=== PATIENT | female | born 1955 | race Caucasian/White ===

== ENCOUNTER 2023-12-11 10:00 | Outpatient (RCR) | payer MEDICARE, SELFPAY | END 2023-12-11 19:00 | disposition home or self-care (01) | LOC: PT 10:00 | DX: M25.561 Pain in right knee (principal); M76.62 Achilles tendinitis, left leg; G89.29 Other chronic pain | CPT/HCPCS: 97110; 97113; 97162; 97530 ==

== ENCOUNTER 2024-05-05 09:30 | Outpatient (RCR) | payer MEDICARE, SELFPAY ==
--- NOTE | 2024-02-13 09:43 | HP.PTEVAL_ITS ---
Patient's Visit Information Visit Information Visit Information: SHILOH LENZ is a 68 year old F referred to Physical Therapy by Dr. Marko Munoz MD with a diagnosis of L achilles tendinitis, L plantar fascitis. Date of Evaluation: 02/11/24 Physical Therapist: Alexi Anders DPT Visit Plan Frequency: 2x /Week Duration: 6 Weeks Plan: 1) US to medial plantar fascia. IASTIM to same region 2) calf stretching 3) foot intrinsic strengthening, toe curls, post tib strengthening. 4) CKC exercises progressing to achilles eccentrics to assist with tissue remodling. Subjective Subjective: Pt. is here today for her initial evaluation with diagnosis of L achilles tendinitis and L plantar fasciatis. Pt. reports having increased pain for a while now. Pt. is currently in a boot, but is okay to start weaning out of it. She did have an injection which was helpful. Pt. did have an MRI confirming no tearing. Pt. has increased pain with standing, walking, and exercises. She reports most of her pain is now located at medial plantar fascia origin. She still has some achilles pain as well. No N/T noted. Pt. has not been stretching or exercising much due to letting it rest. Pt. is retired. She is hopeful to reduce symptoms in order to get back to all recreational and household activities without limitations. Pain L achilles: Pain Intensity (Out of 10): 1 Pain Intensity Range: 0 and 4 L plantar fascia: Pain Intensity (Out of 10): 3 Pain Intensity Range: 2 and 9 Objective Objective: POSTURE: Pt. has decent posture in stance. No major over pronation. Pt. has some L toeing out in stance. Otherwise normal ARCELIA. PALPATION: Pt. has some tenderness at distal achilles, more so at medial plantar fascia origin. No pain in G/S complex NEURO: normal throughout. ROM: Pt. has slight calf tightness, but reports more of a stretch not pain. MMT: Pt. has 4/5 foot intrinsic strength, 5-/5 PF, and 5-/5 post tib. GAIT: Pt. has increased L toeing out, slight increase in pronation during stance phase. Pt. does have slight decreased step length on R side, but not severe. Slight antalgic pattern during L stance phase. STAIRS: normal ascending, early heel off with descending. Balance/Special Test Scores Lower Extremity Functional Score: 33 Goals Goal 1:: LTG: pt. to be I with HEP. Goal Time Frame: 4-6 Weeks Goal 2:: Pt. to have normal gait pattern without increase in L foot/achilles pain. Goal Time Frame: 4-6 Weeks Goal 3:: LTG: Pt. to have symmetrical strength between BLEs. Goal Time Frame: 4-6 Weeks Goal 4:: LTG: Pt. to be able to negotiate stairs without increase in L achilles/plantar fascia pain. Goal Time Frame: 4-6 Weeks Rehabilitation Potential Physical Therapy Diagnosis: Pt. has signs and symptoms consistent with L achilles tendinitis, L plantar fascitis. pt. has some calf tigtness, plantar fascia tightness and foot intrinsic strength and calf strength. Pt. would benefit from PT to address the above limitations progressing back to all previous levels of function. Rehabilitation Potential: Excellent Anticipated Interventions Patient/Client Instruction: Educate patient on: Condition, Plan of Care, Risk Factors and Benefits of Fitness Program For the Purpose of:: To improve health and function, To foster healthy habits, To improve decision making, To facilitate caregiver knowledge, To improve self management, To prevent re-injury and To improve ability to perform tasks related to life management Therapeutic Exercise to Include: Strength training, Power training, Flexibilty training, Passive ROM and Active ROM For the Purpose of:: To decrease pain, To increase ROM, To improve nutrient delivery to tissue, To increase oxygenation perfusion, To improve muscle performance and motor function, To improve ability to perform ADL's, To increase tolerance to activity/condition/position, To improve performance and in dependence with ADL's and To decrease soft tissue restriction Manual Therapy Techniques to Include: Soft tissue mobilization Comment: IASTIM For the Purpose of:: To decrease pain, To increase ROM, To improve nutrient delivery to tissue, To decrease soft tissue restriction and To increase flexibility/ROM Ultrasound (thermal/non thermal): Yes For the Purpose of:: To decrease pain, To increase ROM, To improve nutrient delivery to tissue and To increase oxygenation perfusion Text: Thank you for the opportunity to evaluate your patient. For Medicare and Medicare HMO plans, please review the plan of care and approve it. It will need to be FAXED BACK to us at [phone] for Medicare purposes. For Medicare only, by signing this I certify the plan of care. Please let me know if there are questions or concerns regarding this plan of care. Physician Signature: Date:
--- NOTE | 2024-03-11 14:45 | HP.PTREVAL ---
Re-Evaluation Intro: Dr. Marko Munoz MD, It has been my pleasure to treat SHILOH LENZ over the last 9 visits for L achilles tendinitis, L plantar fascitis. Please see the progress note below for an update on the physical therapy plan of care! Subjective Subjective: Pt. reports that her achilles is doing better, but is still having medial plantar fascia pain. Pt. reports being 40%. Pt. is pleased thus far. Objective Objective/Function: Pt. has much improved ROM of her achilles. Pt. is not having much pain in her achilles, but is still having issues with her medial plantar fascia. She has increased tenderness at medial insertion. MMT: Pt. has decent strength throughout her ankle. She does how ever have some weakness at post tib and her foot intrinsic muscles. GAIT: Pt. has increased L toeing out with increased pronation on her L side during stance phase. I talked to her about strengthening of her post tib and foot intrinsics. I showed her some post tib strengthening, and intrinsic strengthening as well. We briefly talked about some over the counter orthotics to trial. Pt. to look into this. Plan Plan Plan: Extending POC x2 per week for 4 weeks. Focus on foot intrinsic strengthening ie banded toe curls etc. Add in post tib strengthening both OKC and CKC. May use manual and IASTIM to work on decreasing acute symptoms as well. Balance/Gait/Functional tests Balance/Special Test Scores Lower Extremity Functional Score: 49 Goals Goals Goal 1:: LTG: pt. to be I with HEP. Goal Time Frame: 4-6 Weeks Goal Progress: Progressing Goal 2:: Pt. to have normal gait pattern without increase in L foot/achilles pain. Goal Time Frame: 4-6 Weeks Goal Progress: Progressing Goal 3:: LTG: Pt. to have symmetrical strength between BLEs. Goal Time Frame: 4-6 Weeks Goal Progress: Progressing Goal 4:: LTG: Pt. to be able to negotiate stairs without increase in L achilles/plantar fascia pain. Goal Time Frame: 4-6 Weeks Goal 5:: LTG: Pt. to maintain SLS on LLE with out increased pronation for 30sec. Goal Time Frame: 6-8 Weeks Anticipated Interventions Anticipated Interventions Patient/Client Instruction: Educate patient on: Condition, Plan of Care, Risk Factors and Benefits of Fitness Program For the Purpose of:: To improve health and function, To foster healthy habits, To improve decision making, To facilitate caregiver knowledge, To improve self management, To prevent re-injury and To improve ability to perform tasks related to life management Therapeutic Exercise to Include: Strength training, Power training, Flexibilty training, Passive ROM and Active ROM For the Purpose of:: To decrease pain, To increase ROM, To improve nutrient delivery to tissue, To increase oxygenation perfusion, To improve muscle performance and motor function, To improve ability to perform ADL's, To increase tolerance to activity/condition/position, To improve performance and independence with ADL's and To decrease soft tissue restriction Manual Therapy Techniques to Include: Soft tissue mobilization Comment: IASTIM For the Purpose of:: To decrease pain, To increase ROM, To improve nutrient delivery to tissue, To decrease soft tissue restriction and To increase flexibility/ROM Ultrasound (thermal/non thermal): Yes For the Purpose of:: To decrease pain, To increase ROM, To improve nutrient delivery to tissue and To increase oxygenation perfusion Re-Evaluation Ending Re-evaluation ending: Please do not hesitate to contact me at [phone] by phone or if you have questions or concerns regarding this new plan of care! Sincerely, Alexi Anders DPT
--- NOTE | 2024-04-15 11:57 | HP.PTREVAL_ITS ---
Re-Evaluation Intro: Dr. Marko Munoz MD, It has been my pleasure to treat SHILOH LENZ over the last 15 visits for L achilles tendinitis, L plantar fascitis. Please see the progress note below for an update on the physical therapy plan of care! Subjective Subjective: Pt. reports overall doing better. She went to aquatic exercise class and was able to tolerate well. Objective Objective/Function: ROM: L ankle DF 8deg active, 14deg passive- increased achilles tenderness. MMT: pt. has good strength throughout L ankle, symmetrical to R side. BUt does have marked issues with eccentric lowering and SL heel raises. GAIT: Pt. continues to have increased R pronation in R stance. R hip ER positioning with gait. STAIRS: Slight increased in achilles tendon pain with lowering in stance phase. SL balance: pt. continues to have some slight imbalance in L SLS. At this point in time I would suggest that she continue to work on WBing strengthening, balance and stability of R ankle in order to reduce stress to ankle with daily activities. She reports starting to do some water aerobics and chair yoga. I suggested that she go back to yoga, but modify as needed. I want her to start to resume her activities, but as tolerated, ie reducing distance, and loading. Goals adjusted today. Pt. met her strength goal, but does have difficulty with eccentric and SL heel raises, added this to goals. She is still ahving some issues with stair negotiation, most likely due to calf tightness, continue to work on stretching here as well. Plan Plan Plan: I am recerting her for x2 week for 4 more week. Focus on SLS balance, progressive calf strengthening, achilles remodeling. Balance/Gait/Functional tests Balance/Special Test Scores Lower Extremity Functional Score: 58 Goals Goals Goal 1:: LTG: pt. to be I with HEP. Goal Time Frame: 4-6 Weeks Goal Progress: Progressing Goal 2:: Pt. to have normal gait pattern without increase in L foot/achilles pain. Goal Time Frame: 4-6 Weeks Goal Progress: Progressing Goal 3:: NEW GOAL: Pt. to complete SL heel raises x10 without issues of L ankle/foot pain. Goal Time Frame: 4-6 Weeks Goal Progress: Progressing Goal 4:: LTG: Pt. to be able to negotiate stairs without increase in L achilles/plantar fascia pain. Goal Time Frame: 4-6 Weeks Goal Progress: Progressing Goal 5:: LTG: Pt. to maintain SLS on LLE with out increased pronation for 30sec. Goal Time Frame: 6-8 Weeks Goal Progress: Progressing Goal 6:: LTG: pt. to resume recreational walking and yoga classes without issues. Goal Time Frame: 6-8 Weeks Goal Progress: Progressing Anticipated Interventions Anticipated Interventions Patient/Client Instruction: Educate patient on: Condition, Plan of Care, Risk Factors and Benefits of Fitness Program For the Purpose of:: To improve health and function, To foster healthy habits, To improve decision making, To facilitate caregiver knowledge, To improve self management, To prevent re-injury and To improve ability to perform tasks related to life management Therapeutic Exercise to Include: Strength training, Power training, Flexibilty training, Passive ROM and Active ROM For the Purpose of:: To decrease pain, To increase ROM, To improve nutrient delivery to tissue, To increase oxygenation perfusion, To improve muscle performance and motor function, To improve ability to perform ADL's, To increase tolerance to activity/condition/position, To improve performance and independenc e with ADL's and To decrease soft tissue restriction Manual Therapy Techniques to Include: Soft tissue mobilization Comment: IASTIM For the Purpose of:: To decrease pain, To increase ROM, To improve nutrient delivery to tissue, To decrease soft tissue restriction and To increase flexibility/ROM Ultrasound (thermal/non thermal): Yes For the Purpose of:: To decrease pain, To increase ROM, To improve nutrient delivery to tissue and To increase oxygenation perfusion Re-Evaluation Ending Re-evaluation ending: Please do not hesitate to contact me at [phone] by phone or if you have questions or concerns regarding this new plan of care! Sincerely, Alexi Anders DPT
--- NOTE | 2024-05-05 10:09 | HP.PTDCSUM ---
Discharge Summary D/C summary: It has been my pleasure to treat SHILOH LENZ referred by Dr. Marko Munoz MD, with the diagnosis of L achilles tendinitis, L plantar fascitis for a total of 19 visit(s). Discharge Date: 05/05/24 Please see the following information for a summary of their discharge status. Subjective Subjective: Pt. reports reports still having high levels of pain after doing activities. She reports not being able to walk last night. Pt. reports high levels of stiffness at home. Pt. reports doing some exercises x1 daily, stretching daily as well. Pain L achilles: Pain Intensity (Out of 10): 4 L plantar fascia: Pain Intensity (Out of 10): 4 Overall Improvement % Improvement: 80 Objective Objective/Function: Pt. is overall not changing much. I talked with her and we decided that she is to continue with her eccentrics and stretch frequently. At this point in time she is to follow up with physician while doing exercises to determine best course of action. I am doing to DC her back to physician at this point in time. Goals Goal 1:: LTG: pt. to be I with HEP. Goal Progress: Goal Met Goal 2:: Pt. to have normal gait pattern without increase in L foot/achilles pain. Goal Progress: Goal Met Goal 3:: NEW GOAL: Pt. to complete SL heel raises x10 without issues of L ankle/foot pain. Goal Progress: Goal Met Goal 4:: LTG: Pt. to be able to negotiate stairs without increase in L achilles/plantar fascia pain. Goal Progress: Progressing Goal 5:: LTG: Pt. to maintain SLS on LLE with out increased pronation for 30sec. Goal Progress: Progressing Goal 6:: LTG: pt. to resume recreational walking and yoga classes without issues. Goal Progress: Progressing Plan Plan: DC back to physician D/C Information d/c sentence: If there are questions or concerns regarding this patient's physical therapy, please feel free to call me at [phone]. Thank you for the referral of this patient. Sincerely, Alexi Hudson Sipos, DPT Balance/Gait/Functional tests Balance/Special Test Scores Lower Extremity Functional Score: 58 Improvement % Improvement: 80
== END 2024-05-05 19:00 | disposition home or self-care (01) ==
LOC: PT 09:30
PROVIDERS: Referring Provider Orthopaedic Surgery; Visit Provider Orthopaedic Surgery
DX: M76.62 Achilles tendinitis, left leg (principal); M79.672 Pain in left foot; G89.29 Other chronic pain
CPT/HCPCS: 97035; 97110; 97140; 97161; 97530

== ENCOUNTER 2025-03-30 09:00 | Outpatient (RCR) | payer MEDICARE, SELFPAY ==
--- NOTE | 2024-09-22 14:07 | HP.PTEVAL ---
Patient's Visit Information Visit Information Visit Information: SHILOH LENZ is a 69 year old F referred to Physical Therapy by Dr. Geri Castillo MD with a diagnosis of L Achilles tendon debridement with repair. DOS: 07/24/24. Date of Evaluation: 09/19/24 Physical Therapist: Alexi Anders DPT Visit Plan Frequency: 2x /Week Duration: 6 Weeks Plan: Start with week #4 of protocol. Progress per protocol. She has not started much exercises so may need to start back to get some exercises initiated. I gave her towel calf stretch, ankle PF/DF/INV/EVR/circles for HEP. Subjective Subjective: Pt. is here today for her initial evaluation with diagnosis of L Achilles tendon debridement with repair. DOS: 07/24/24. Pt. arrives with use of rollator and CAM boot. Pt. reports she is 25-30% WBing on her L foot now. She was on a knee scooter for several weeks. Pt. reports overall doing well. She is a little bit more sore since WBing, but not bad. Pt. has not done much exercise as she was instructed not to. Pt. is sleeping well. She is hopeful to reduce symptoms, increase her ROM and strength in order to get back to all recreational activities without limitations. Pain L heel: Pain Intensity (Out of 10): 2 Pain Intensity Range: 0 and 4 Objective Objective: POSTURE: Pt. has increased wt. shift to R side in stance. Rest is normal. PALPATION: Pt. has well healing incision. She is tender along incision. No signs of infection. NEURO: normal throughout. ROM: L ankle: PF 38deg, DF 10deg, INV 15deg, EVR 8deg. Normal knee ROM noted. MMT: R ankle 5/5 throughout. L ankle: DF 4/5, PF 4/5, INV 4/5, EVR 4/5. toe flexion 4/5. toe ext 4/5. GAIT: Pt. ambulates well with rollator. Pt. does put more wt. on her L foot than 25%, but did better after VCing. No major antalgic pattern noted. STAIRS: step to pattern noted. Balance/Special Test Scores Lower Extremity Functional Score: 23 Goals Goal 1:: LTG: pt. to be I with HEP. Goal Time Frame: 4-6 Weeks Goal 2:: LTG: Pt. to have increased DF to full motion without increase in symptoms. Goal Time Frame: 4-6 Weeks Goal 3:: LTG: Pt. to ambulate with CAM boot without AD without increase in symptoms. Goal Time Frame: 4-6 Weeks Goal 4:: LTG: Pt. to have 4/5 strength in her ankle without increase in symptoms. Goal Time Frame: 4-6 Weeks Rehabilitation Potential Physical Therapy Diagnosis: Pt. has signs and symptoms consistent with L Achilles tendon debridement with repair. DOS: 07/24/24. Pt. has marked hypomobility, weakness and difficulty with walking. Pt. would benefit from PT to address the above limitations progressing back to all previous levels of mobility. Rehabilitation Potential: Excellent Anticipated Interventions Patient/Client Instruction: Educate patient on: Condition, Plan of Care, Risk Factors and Benefits of Fitness Program For the Purpose of:: To facilitate caregiver knowledge, To improve self management, To prevent re-injury, To improve ability to perform tasks related to life management and To improve tolerance to ADL's Therapeutic Exercise to Include: Strength training, Power training, Body mechanics, Postural training, Flexibilty training, Gait and locomotor training, Passive ROM and Active ROM For the Purpose of:: To decrease pain, To decrease swelling/inflammation, To increase ROM, To improve nutrient delivery to tissue, To increase oxygenation perfusion, To improve muscle performance and motor function, To improve ability to perform ADL's, To improve ability of physical actions for home/community/work/leisure, To improve gait and locomotor functions, To improve health of tissue, To decrease soft tissue restriction and To increase flexibility/ROM Manual Therapy Techniques to Include: Scar massage, Passive ROM and Soft tissue mobilization For the Purpose of:: To decrease pain, To decrease swelling/inflammation, To increase ROM, To improve nutrient delivery to tissue, To increase oxygenation perfusion and To improve muscle performance and motor function Cryotherapy (ice pack, ice massage): Yes Thermo therapy (hot pack): Yes For the Purpose of:: To decrease pain, To decrease swelling/inflammation, To increase ROM, To improve nutrient delivery to tissue and To increase oxygenation perfusion Text: Thank you for the opportunity to evaluate your patient. For Medicare and Medicare HMO plans, please review the plan of care and approve it. It will need to be FAXED BACK to us at [phone] for Medicare purposes. For Medicare only, by signing this I certify the plan of care. Please let me know if there are questions or concerns regarding this plan of care. Physician Signature: Date:
--- NOTE | 2025-02-11 11:05 | HP.PTDCSUM ---
Discharge Summary D/C summary: It has been my pleasure to treat SHILOH LENZ referred by Dr. Geri Castillo MD, with the diagnosis of L Achilles tendon debridement with repair. DOS: 07/24/24 for a total of 28 visit(s). Discharge Date: 01/30/25 Please see the following information for a summary of their discharge status. Subjective Subjective: Pt. reports feeling a little bit better today. She is going on vacation. She does have a new script for her R knee now.. I am going to DC her L heel pain. Since this is doing much better. Pt. does have some plantar fascia pain. Her biggest issue is now with her R knee. Pain L heel: Pain Intensity (Out of 10): 1 R knee: Pain Intensity (Out of 10): 3 Overall Improvement % Improvement: 95 Objective Objective/Function: Pt. is overall doing well. I did EPAT to her plantar fascia with good tolerance. Pt. has great ROM of her ankle and is walking well. Good strength noted. I am going to DC this cart and focus on her knee at this point in time. Goals Goal 1:: LTG: pt. to be I with HEP. Goal Progress: Goal Met Goal 2:: LTG: Pt. to have increased DF to full motion without increase in symptoms. Goal Progress: Goal Met Goal 3:: LTG: Pt. to ambulate with CAM boot without AD without increase in symptoms. Goal Progress: Goal Met Goal 4:: LTG: Pt. to have 4/5 strength in her ankle without increase in symptoms. Goal Progress: Goal Met Plan Plan: DC this chart as patient is doing great. D/C Information d/c sentence: If there are questions or concerns regarding this patient's physical therapy, please feel free to call me at [phone]. Thank you for the referral of this patient. Sincerely, Alexi Hudson Sipos, DPT Balance/Gait/Functional tests Balance/Special Test Scores Lower Extremity Functional Score: 45 Improvement % Improvement: 95
--- NOTE | 2025-02-11 11:51 | HP.PTEVAL2_ITS ---
Patient's Visit Information Visit Information Visit Information: SHILOH LENZ is a 69 year old F referred to Physical Therapy by Dr. Geri Castillo MD with a diagnosis of R knee OA, acute R knee pain.. Date of Evaluation: 02/06/25 Physical Therapist: Alexi Anders DPT Visit Plan Frequency: 2x /Week Duration: 4 Weeks Plan: 1) RLE strengthening, start with mat exercises progressing to CKC. ROM as tolerated. OK to use EPAT on L plantar fascia as needed (non billed trial) Subjective Subjective: Pt. is here today for her initial evaluation with diagnosis of acute R knee pain, R knee OA. Pt. reports having a flare up of symptoms. She is doing better with her knee pain, but is still hesitant to get back into her exercises due to how painful it was. Pt. reports no N/T in either LE. Pt. has increased pain with walking, stairs, sit to stand. Her pain has been better since prednisone. Pt. is hopeful to get back to all household and recretaonal activities without limitaitons. Pain R knee pain: Intensity: 2 Pain Intensity Range: 0 and 4 Objective Objective: POSTURE: Pt. has normal posture in stnace. normal knee positioning. Normal wt. shifting. PALPATION: pt. has no pain with palpation. NEURO: normal throughout. ROM: R knee: 0-3-115deg, Pt. has slight tightness in B HS as well. MMT: L knee: ext 32.1#, flexion 22.8#; hip: flexion 15.9#. RLE: knee: ext 21.5#, flexion 13.7#; hip: flex 15.9# GAIT: PT. has a farily normal gait pattern. STAIRS: Pt. has increased pain during R stance/loaded phases. Goals Goal 1:: LTG: Pt. to have no pain with all walking and ADLs. Goal Time Frame: 4-6 Weeks Goal 2:: LTG: Pt. to negotiate 1 flight of stairs with 1 HR with reciprocal pat tern. Goal Time Frame: 4-6 Weeks Goal 3:: LTG: Pt. to sleep throughout the night without increase in symptoms. Goal Time Frame: 2-4 Weeks Rehabilitation Potential Physical Therapy Diagnosis: Pt. has signs and symptoms consistent with R knee OT and acute R knee pain. Pt. would benefit from PT to address her hypomobility., RLE weakness and decreased pain. Rehabilitation Potential: Excellent Anticipated Interventions Patient/Client Instruction: Educate patient on: Condition, Plan of Care, Risk Factors and Benefits of Fitness Program For the Purpose of:: To improve decision making, To facilitate caregiver knowledge, To improve self management, To prevent re-injury and To improve ability to perform tasks related to life management Therapeutic Exercise to Include: Strength training, Endurance training, Balance training, Coordination, Passive ROM, Active ROM and Dynamic Lumbar Stabilization For the Purpose of:: To decrease pain, To increase ROM, To improve nutrient delivery to tissue, To increase oxygenation perfusion, To improve muscle performance and motor function and To improve ability to perform ADL's text: Thank you for the opportunity to evaluate your patient. For Medicare and Medicare HMO plans, please review the plan of care and approve it. It will need to be FAXED BACK to us at [phone] for Medicare purposes. For Medicare only, by signing this I certify the plan of care. Please let me know if there are questions or concerns regarding this plan of care. Physician Signature: Date:
== END 2025-03-30 19:00 | disposition home or self-care (01) ==
LOC: PT 09:00
PROVIDERS: Referring Provider Orthopaedic Surgery; Visit Provider Orthopaedic Surgery
DX: M24.572 Contracture, left ankle (principal); M76.62 Achilles tendinitis, left leg; M72.2 Plantar fascial fibromatosis
CPT/HCPCS: 97016; 97035; 97110; 97140; 97161; 97530